=== PATIENT | female | born 1995 | race Caucasian/White ===

== ENCOUNTER 2019-02-15 19:18 | Emergency (ER) | payer OTHER ==
[~2019-02-15] VITALS: Ht 167.6 cm; Wt 55.0 kg
[2019-02-15] MEDS ORDERED: MAALOX/HYOSCYAMINE/LIDOCAINE 45 ML BTL PO ONE (20:00)
[2019-02-15] MEDS ORDERED: SODIUM CHLORIDE 0.9% 1,000ML IVBOLUS ONE (20:00)
[2019-02-15 20:09] LABS: BASOPHILS # (AUTO) 0.03 x10^3/uL (0-0.1); BASOPHILS % (AUTO) 0 % (0-1); EOSINOPHILS # (AUTO) 0.01 x10^3/uL (0-0.4); EOSINOPHILS % (AUTO) 0 % (1-7); LYMPHOCYTES % (AUTO) 35 % (22-44); MD NO; MEAN CORPUSCULAR HEMOGLOBIN 35.6 pg (27.0-34.8); MEAN CORPUSCULAR HGB CONC 34.3 g/dL (32.4-35.8); MEAN CORPUSCULAR VOLUME 103.8 fL (80-100); MEAN PLATELET VOLUME 7.8 fL (7.4-10.4); MONOCYTES # (AUTO) 0.37 x10^3/uL (0.2-0.8); MONOCYTES % (AUTO) 4 % (2-9); NEUTROPHILS # (AUTO) 5.32 x10^3/uL (1.8-6.8); NEUTROPHILS % (AUTO) 60 % (42-75); PLATELET COUNT 246 x10^3/uL (130-400); RED CELL DISTRIBUTION WIDTH 12.1 % (9.6-15.2)
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
[2019-02-15 20:19] LABS: ALANINE AMINOTRANSFERASE 23 U/L (12-78); ALBUMIN 3.9 g/dL (3.4-5.0); ANION GAP 10 mmol/L (5-15); CALCIUM 8.3 mg/dL (8.5-10.1); CHLORIDE 110 mmol/L (98-107)
[2019-02-15 20:24] LABS: ALKALINE PHOSPHATASE 62 U/L (45-117); BILIRUBIN,TOTAL 0.3 mg/dL (0.2-1.0); TOTAL PROTEIN 7.5 g/dL (6.4-8.2)
[2019-02-15] MEDS ORDERED: FAMOTIDINE 20 MG/2 ML ONE (20:24)
[2019-02-15] MEDS ORDERED: MAALOX/HYOSCYAMINE/LIDOCAINE 45 ML BTL ONE (20:24)
[2019-02-15] MEDS ORDERED: FAMOTIDINE 20 MG/2 ML IVP ONE (20:30)
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
[2019-02-15] MEDS ORDERED: LORazepam 2 MG/ML, 1ML ONE (21:22)
[2019-02-15] MEDS ORDERED: LORazepam 2 MG/ML, 1ML IVPush ONE (21:30)
--- NOTE | 2019-02-15 21:30 | NUR ---
PT C/O ANXIETY. DISCUSSED WITH HARINDER CARLOS AND PT MEDICATED ORDERED. PT TEARFULL, AO X 4. SKIN PWD. RESP EVEN AND UNLABORED. PT ON CONT BP AND O2 MONITORS. SISTER AT BEDSIDE. CALL LIGHT WITHIN REACH. WILL CONT TO MONITOR PT.
--- NOTE | 2019-02-15 22:15 | NUR ---
PT REPORTS THAT ANXIETY IS DECREASED AND SHE FEELS MORE CALM. HARINDER CARLOS AT BEDSIDE FOR RECHECK/EXPLANATION OF RESULTS. SISTER AND PT VERBALIZE UNDERSTANDING OF DC PLAN. PT ON CONT BP AND O2 MONITORS. REPORT TO RN JOSEFINA WHO ASSUMED CARE OF PT.
--- NOTE | 2019-02-15 23:01 | NUR ---
given dc instruction with work note pt understood sister at bed side for riding home vss stable pt was wheeled out for check out sister at the door
[2019-02-15 23:03] VITALS: BP 133/98
== END 2019-02-15 23:07 | disposition home or self-care (01) ==
LOC: ED 22:45
DX: F10.120 Alcohol abuse with intoxication, uncomplicated (principal); R11.10 Vomiting, unspecified
CPT/HCPCS: 36415; 80053; 80307; 84703; 85025; 96361; 96374; 96375; 99283; J2060; J3490; J7030

== ENCOUNTER 2019-11-23 23:59 | Emergency (ER) | payer OTHER ==
[~2019-11-23] VITALS: Ht 167.6 cm; Wt 55.2 kg
--- NOTE | 2019-11-24 01:05 | NUR ---
PT TO ROOM FROM LOBBY.
--- NOTE | 2019-11-24 01:12 | NUR ---
PT TO ED WITH REPORTED CP STARTING YESTERDAY AROUND 6P. PT REPORTS ACHING PAIN, DENIES SOB, NAUSEA, OR RADIATION. DENIES ANY OTHER SYMPTOMS AT THIS TIME. PT CONNECTED TO ALL MONTORING, CALL LIGHT WITHIN REACH, ALL SAFETY MEASURES IN PLACE.
--- NOTE | 2019-11-24 01:13 | NUR ---
ERMD IN ROOM TO INGRID PT.
[2019-11-24] MEDS ORDERED: MAALOX/HYOSCYAMINE/LIDOCAINE 45 ML BTL ONE (02:22)
[2019-11-24] MEDS ORDERED: MAALOX/HYOSCYAMINE/LIDOCAINE 45 ML BTL PO ONE (02:30)
[2019-11-24 02:36] VITALS: BP 110/67
== END 2019-11-24 02:39 | disposition home or self-care (01) ==
LOC: ED 11-24 02:10
DX: R07.89 Other chest pain (principal); K21.0 Gastro-esophageal reflux disease with esophagitis; I51.7 Cardiomegaly; F17.200 Nicotine dependence, unspecified, uncomplicated
CPT/HCPCS: 71046; 93005; 99283

== ENCOUNTER 2019-11-26 12:32 | Emergency (ER) | payer OTHER ==
[~2019-11-26] VITALS: Ht 167.6 cm; Wt 54.6 kg
[2019-11-26] MEDS ORDERED: KETOROLAC 30 MG/1 ML IM ONE (13:00)
[2019-11-26] MEDS ORDERED: MAALOX/HYOSCYAMINE/LIDOCAINE 45 ML BTL PO ONE (13:00)
[2019-11-26] MEDS ORDERED: FAMOTIDINE 20 MG TABLET PO ONE (13:00)
[2019-11-26] MEDS ORDERED: FAMOTIDINE 20 MG TABLET ONE (13:05)
[2019-11-26] MEDS ORDERED: KETOROLAC 30 MG/1 ML ONE (13:06)
[2019-11-26] MEDS ORDERED: MAALOX/HYOSCYAMINE/LIDOCAINE 45 ML BTL ONE (13:06)
[2019-11-26 13:14] LABS: BASOPHILS # (AUTO) 0.02 x10^3/uL (0-0.1); BASOPHILS % (AUTO) 0 % (0-1); EOSINOPHILS # (AUTO) 0.02 x10^3/uL (0-0.4); EOSINOPHILS % (AUTO) 0 % (1-7); LYMPHOCYTES # (AUTO) 1.04 x10^3/uL (1-3.4); LYMPHOCYTES % (AUTO) 19 % (22-44); MD NO; MEAN CORPUSCULAR HEMOGLOBIN 33.1 pg (27.0-34.8); MEAN CORPUSCULAR HGB CONC 34.2 g/dL (32.4-35.8); MEAN CORPUSCULAR VOLUME 96.8 fL (80-100); MEAN PLATELET VOLUME 8.1 fL (7.4-10.4); MONOCYTES # (AUTO) 0.58 x10^3/uL (0.2-0.8); MONOCYTES % (AUTO) 10 % (2-9); NEUTROPHILS # (AUTO) 3.92 x10^3/uL (1.8-6.8); NEUTROPHILS % (AUTO) 70 % (42-75); PLATELET COUNT 205 x10^3/uL (130-400); RED BLOOD COUNT 3.99 x10^6/uL (3.82-5.3); RED CELL DISTRIBUTION WIDTH 12.4 % (9.6-15.2)
[2019-11-26 13:22] LABS: ALBUMIN 3.5 g/dL (3.4-5.0); ANION GAP 7 mmol/L (5-15); CALCIUM 9.5 mg/dL (8.5-10.1); CHLORIDE 98 mmol/L (98-107); CREATININE 0.93 mg/dL (0.55-1.02)
[2019-11-26 13:25] LABS: TROPONIN I < 0.015 ng/mL (0.000-0.045)
--- NOTE | 2019-11-26 14:17 | NUR ---
recheck. nad. vss. as
[2019-11-26 14:46] VITALS: BP 115/73
== END 2019-11-26 14:49 | disposition home or self-care (01) ==
LOC: ED 14:26
DX: M94.0 Chondrocostal junction syndrome [Tietze] (principal); F17.200 Nicotine dependence, unspecified, uncomplicated; K21.9 Gastro-esophageal reflux disease without esophagitis; R07.89 Other chest pain
CPT/HCPCS: 36415; 80048; 82040; 84484; 85025; 85379; 93005; 96372; 99284; J1885

== ENCOUNTER 2019-12-17 21:19 | Emergency (ER) | payer OTHER ==
[~2019-12-17] VITALS: Ht 167.6 cm; Wt 55.1 kg
[2019-12-17] MEDS ORDERED: LIDOCAINE 1%-EPI 1:100K, 20ML SQ ONE (22:30)
--- NOTE | 2019-12-17 22:34 | NUR ---
CARE ASSUMED OF PT. PT PRESENTS WITH ABSCESS TO UPPER MIDLINE NECK. SUPPLIES FOR I&D AT BEDSIDE. AWAITING PROVIDER. PT UPDATED TO POC. CALL LIGHT IN REACH.
[2019-12-17] MEDS ORDERED: LIDOCAINE 1%-EPI 1:100K, 20ML ONE (22:39)
--- NOTE | 2019-12-17 22:55 | NUR ---
PROVIDER AT BEDSIDE FOR I&D.
[2019-12-17 23:28] VITALS: BP 124/85
[2019-12-18] MEDS ORDERED: LIDOCAINE-MPF 1%, 5ML ONE (01:01)
[2019-12-18] MEDS ORDERED: ZIPRASIDONE 20 MG INJ IM ONE (01:01)
== END 2019-12-17 23:30 | disposition home or self-care (01) ==
LOC: ED 21:30
DX: L02.811 Cutaneous abscess of head [any part, except face] (principal); M54.2 Cervicalgia; F17.200 Nicotine dependence, unspecified, uncomplicated
CPT/HCPCS: 10060; 99283

== ENCOUNTER 2020-01-26 11:34 | Observation (INO) | payer OTHER ==
[~2020-01-26] VITALS: Ht 167.6 cm; Wt 53.0 kg
--- NOTE | 2020-01-26 11:57 | NUR ---
PT AMBULATED BACK TO ROOM, MOM AT BS, NAD, RESP WNL, P/W/D, FCS NO SOB NOTED, CALL LIGHT ON LAP, LIGHTS DIMMED FOR COMFORT AND GIVEN WARM BLANKET FOR COMFORT. BS REPORT TO ELISEO ORTIZ. PT CARE TRANSFERRED AT THIS TIME.
[2020-01-26] MEDS ORDERED: L-THEANINE PO (11:58)
[2020-01-26] MEDS ORDERED: SODIUM CHLORIDE FLUSH 10ML SYR IVF ONE (12:00)
[2020-01-26] MEDS ORDERED: SODIUM CHLORIDE 0.9% 1,000ML IVBOLUS ONE (12:00)
[2020-01-26] MEDS ORDERED: METOCLOPRAMIDE 5 MG/ML, 2ML IVPush ONE (12:00)
--- NOTE | 2020-01-26 12:03 | NUR ---
LM RN: HARINDER LACY AT BEDSIDE FOR EVAL.
[2020-01-26] MEDS ORDERED: METOCLOPRAMIDE 5 MG/ML, 2ML ONE (12:12)
[2020-01-26] MEDS ORDERED: MORPHINE SULFATE 4 MG/ML, 1ML ONE ×2 (12:12→12:49)
[2020-01-26] MEDS: MORPHINE SULFATE 4 MG/ML, 1ML IVPush PRN ×2 (12:30→12:52)
--- NOTE | 2020-01-26 12:33 | NUR ---
REPORT RECEIVED FROM YISSEL ORTIZ.
[2020-01-26 12:48] LABS: HCG UR SG 1.013 (1.003-1.030)
[2020-01-26 12:49] LABS: MICROSCOPIC INDICATED
[2020-01-26 12:50] LABS: CULTURE INDICATED? YES
--- NOTE | 2020-01-26 12:52 | NUR ---
PT C/O PAIN AGAIN AND REQUESTING PAIN MED. PT MEDICATED PER EMAR FOR PAIN AT THIS TIME. PT TOLERATED WELL. PT'S AOX4. RESPS EVEN AND UNLABORED.
[2020-01-26 12:55] LABS: ALANINE AMINOTRANSFERASE 16 U/L (12-78); ALBUMIN 3.8 g/dL (3.4-5.0); CALCIUM 8.9 mg/dL (8.5-10.1); CREATININE 0.91 mg/dL (0.55-1.02)
[2020-01-26 12:57] LABS: ALKALINE PHOSPHATASE 68 U/L (45-117); BILIRUBIN,TOTAL 0.6 mg/dL (0.2-1.0); TOTAL PROTEIN 7.1 g/dL (6.4-8.2)
[2020-01-26 13:10] LABS: MD NO
[2020-01-26 13:11] LABS: BASOPHILS # (AUTO) 0.02 x10^3/uL (0-0.1); BASOPHILS % (AUTO) 0 % (0-1); EOSINOPHILS # (AUTO) 0.03 x10^3/uL (0-0.4); EOSINOPHILS % (AUTO) 1 % (1-7); LYMPHOCYTES # (AUTO) 1.75 x10^3/uL (1-3.4); LYMPHOCYTES % (AUTO) 31 % (22-44); MEAN CORPUSCULAR HEMOGLOBIN 33.7 pg (27.0-34.8); MEAN CORPUSCULAR HGB CONC 34.3 g/dL (32.4-35.8); MEAN CORPUSCULAR VOLUME 98.2 fL (80-100); MEAN PLATELET VOLUME 8.4 fL (7.4-10.4); MONOCYTES # (AUTO) 0.69 x10^3/uL (0.2-0.8); MONOCYTES % (AUTO) 12 % (2-9); NEUTROPHILS # (AUTO) 3.17 x10^3/uL (1.8-6.8); NEUTROPHILS % (AUTO) 56 % (42-75); PLATELET COUNT 235 x10^3/uL (130-400); RED BLOOD COUNT 4.77 x10^6/uL (3.82-5.3); RED CELL DISTRIBUTION WIDTH 13.2 % (9.6-15.2)
[2020-01-26 13:16] LABS: ANION GAP 12 mmol/L (5-15); CHLORIDE 72 mmol/L (98-107)
--- NOTE | 2020-01-26 13:23 | NUR ---
pt's pain level is 2/10 at this time. pt's aox4. resps even and unlabored. bp/spo2 monitors in place. call light within reach.
[2020-01-26] MEDS ORDERED: NS + 40MEQ KCL 1,000 ML IV ONE (13:26)
[2020-01-26] MEDS: SODIUM CHLORIDE 0.9% 1,000 ML IV SCH ×3 (13:32→21:44)
--- NOTE | 2020-01-26 13:35 | NUR ---
hospital monitor placed.nsr rate 60's on hospital monitor at this time. pt's aox4. resps even and unlabored. snacks provided per request.
--- NOTE | 2020-01-26 13:37 | NUR ---
med ordered from pharmacy at this time.
--- NOTE | 2020-01-26 13:37 | NUR ---
hospitalist at bedside at this time.
--- NOTE | 2020-01-26 13:46 | NUR ---
ekg done at bedside by emt at this time.
--- NOTE | 2020-01-26 13:52 | NUR ---
pt amb to br with steady gait at this time.
[2020-01-26] MEDS ORDERED: LABETALOL 5MG/ML, 20ML IVPush PRN (14:00)
[2020-01-26] MEDS ORDERED: NICOTINE 21 MG/24 HR PATCH.TD24 TD SCH (14:00)
[2020-01-26] MEDS ORDERED: POTASSIUM CHLORIDE 40 MEQ in SODIUM CHLORIDE 0.9% 500 ML IV ONE (14:00)
[2020-01-26] MEDS ORDERED: ONDANSETRON 2MG/ML, 2ML IVPush PRN (14:00)
[2020-01-26] MEDS ORDERED: ACETAMINOPHEN 325 MG TABLET PO PRN (14:00)
[2020-01-26] MEDS ORDERED: PROMETHAZINE 25 MG/ML, 1ML IM PRN (14:00)
[2020-01-26] MEDS ORDERED: HEPARIN 5,000 UNITS/ML, 1ML ONE (14:04)
[2020-01-26] MEDS ORDERED: NICOTINE 21 MG/24 HR PATCH.TD24 ONE (14:05)
[2020-01-26] MEDS: HEPARIN 5,000 UNITS/ML, 1ML SQ SCH ×2 (14:08→21:44)
--- NOTE | 2020-01-26 14:14 | NUR ---
PT MEDICATED PER EMAR. NICOTINE PATCH PLACED ON L UPPER ARM. NS INFUSING AT THIS TIME(150ML/HR). PT TOLERATED WELL.
[2020-01-26 14:22] LABS: HCT (SEDRATE) 41.5 % (34.6-47.8)
[2020-01-26 14:25] LABS: C-REACTIVE PROTEIN, QUANT < 0.02 mg/dL (0.02-0.49)
--- NOTE | 2020-01-26 14:25 | NUR ---
THIS RN CALLED PHARMACY. PHARMACY WILL SEND MED FOR THIS PT SOON.
--- NOTE | 2020-01-26 14:44 | NUR ---
REPORT GIVEN TO JERRY ORTIZ. ALL QUESTIONS ANSWERED.
--- NOTE | 2020-01-26 15:07 | NUR ---
PT AMB TO BR WITH STEADY GAIT AT THIS TIME.
--- NOTE | 2020-01-26 15:14 | NUR ---
PT BACK TO ROOM FROM WITH STEADY GAIT. PT'S AOX4. RESPS EVEN AND UNLABORED.
--- NOTE | 2020-01-26 15:24 | NUR ---
THIS RN CALLED PHARMACY AGAIN AND PHARMACY WILL SEND MED TO [facility].
[2020-01-26 15:34] VITALS: BP 107/70
[2020-01-26] MEDS ORDERED: MAGNESIUM SULFATE 3 GM in SODIUM CHLORIDE 0.9% 100 ML IV ONE (17:00)
[2020-01-26 17:28] VITALS: BP 100/86
[2020-01-26] MEDS: POTASSIUM CHLORIDE 20 MEQ TAB.ER.PRT PO SCH (17:38)
[2020-01-26] MEDS ORDERED: TRAZODONE 50MG TABLET PO PRN (18:00)
[2020-01-26 18:38] LABS: ANION GAP 7 mmol/L (5-15); CALCIUM 7.8 mg/dL (8.5-10.1); CHLORIDE 87 mmol/L (98-107); CREATININE 0.71 mg/dL (0.55-1.02)
[2020-01-26] MEDS ORDERED: OMNIPAQUE 350 MG/ML, 100ML BOTTLE ONE (18:38)
[2020-01-26 18:42] LABS: AMPHETAMINE SCREEN, URINE Negative (Negative); BARBITURATE SCREEN, URINE Negative (Negative); BENZODIAZEPINE SCREEN, URINE Negative (Negative); CANNABINOID SCREEN, URINE Negative (Negative); COCAINE SCREEN, URINE Negative (Negative); METHADONE SCREEN, URINE Negative (Negative); OPIATE SCREEN, URINE Positive (Negative)
[2020-01-26 18:58] VITALS: BP 101/64
[2020-01-27] MEDS: SODIUM CHLORIDE 0.9% 1,000 ML IV SCH ×2 (00:09→05:48)
[2020-01-27 01:05] LABS: ALBUMIN 2.7 g/dL (3.4-5.0); ANION GAP 5 mmol/L (5-15); CALCIUM 6.8 mg/dL (8.5-10.1); CHLORIDE 101 mmol/L (98-107)
[2020-01-27 01:09] LABS: ALANINE AMINOTRANSFERASE 11 U/L (12-78); ALKALINE PHOSPHATASE 45 U/L (45-117); BILIRUBIN,TOTAL 0.5 mg/dL (0.2-1.0); CREATININE 0.62 mg/dL (0.55-1.02); TOTAL PROTEIN 5.1 g/dL (6.4-8.2)
[2020-01-27 01:33] VITALS: BP 100/61
[2020-01-27] MEDS: HEPARIN 5,000 UNITS/ML, 1ML SQ SCH (05:48)
[2020-01-27 06:43] LABS: ANION GAP 9 mmol/L (5-15); CALCIUM 7.3 mg/dL (8.5-10.1); CHLORIDE 101 mmol/L (98-107)
[2020-01-27 06:44] LABS: CREATININE 0.57 mg/dL (0.55-1.02)
[2020-01-27 06:47] LABS: MEAN CORPUSCULAR HEMOGLOBIN 33.6 pg (27.0-34.8); MEAN CORPUSCULAR HGB CONC 34.1 g/dL (32.4-35.8); MEAN CORPUSCULAR VOLUME 98.7 fL (80-100); MEAN PLATELET VOLUME 8.3 fL (7.4-10.4); PLATELET COUNT 197 x10^3/uL (130-400); RED BLOOD COUNT 4.01 x10^6/uL (3.82-5.3); RED CELL DISTRIBUTION WIDTH 13.4 % (9.6-15.2)
[2020-01-27 07:08] LABS: BASOPHILS # (AUTO) 0.02 x10^3/uL (0-0.1); BASOPHILS % (AUTO) 0 % (0-1); EOSINOPHILS # (AUTO) 0.01 x10^3/uL (0-0.4); EOSINOPHILS % (AUTO) 0 % (1-7); LYMPHOCYTES % (AUTO) 42 % (22-44); MD SCAN; MONOCYTES # (AUTO) 0.39 x10^3/uL (0.2-0.8); MONOCYTES % (AUTO) 8 % (2-9); NEUTROPHILS # (AUTO) 2.35 x10^3/uL (1.8-6.8); NEUTROPHILS % (AUTO) 49 % (42-75)
[2020-01-27 07:16] VITALS: BP 103/69
[2020-01-27] MEDS ORDERED: POTASSIUM CHLORIDE 40 MEQ in SODIUM CHLORIDE 0.9% 500 ML IV ONE (08:00)
[2020-01-27] MEDS ORDERED: POTASSIUM CHLORIDE 20 MEQ TAB.ER.PRT PO ONE (08:00)
[2020-01-27] MEDS: POTASSIUM CHLORIDE 20 MEQ TAB.ER.PRT PO SCH (08:41)
== END 2020-01-27 09:12 | disposition home or self-care (01) ==
LOC: ED 12:55 → INTOOBSV 13:25 → EDIP 13:25 → 4WST 15:28
PROVIDERS: ADMIT Internal Medicine; ATTEND Internal Medicine Infectious Disease
DX: A08.4 Viral intestinal infection, unspecified (principal); R11.2 Nausea with vomiting, unspecified; E87.1 Hypo-osmolality and hyponatremia; E87.3 Alkalosis; E86.0 Dehydration; E86.1 Hypovolemia; E87.6 Hypokalemia; F17.200 Nicotine dependence, unspecified, uncomplicated; R73.9 Hyperglycemia, unspecified; Z79.899 Other long term (current) drug therapy; Z20.828 Contact with and (suspected) exposure to other viral communicable diseases
CPT/HCPCS: 36415; 74177; 80048; 80053; 80307; 81001; 81025; 82150; 83605; 83690; 83735; 83930; 83935; 84100; 84443; 85025; 85651; 86140; 87086; 93005; 96361; 96365; 96366; 96367; 96368; 96372; 96375; 99285; G0378; J1644; J2270; J2765; J3475; J3480; J7030; J7040; Q9967; 96374

== ENCOUNTER 2020-06-24 17:32 | Inpatient (IN) | payer MEDICAID, OTHER ==
[~2020-06-24] VITALS: Ht 167.6 cm; Wt 51.4 kg
[~2020-06-24 17:32] MED LIST: L-THEANINE PO
[2020-06-24] MEDS ORDERED: SODIUM CHLORIDE FLUSH 10ML SYR IVF ONE (18:30)
[2020-06-24] MEDS ORDERED: SODIUM CHLORIDE 0.9% 1,000ML IVBOLUS ONE ×2 (18:30→19:30)
[2020-06-24] MEDS ORDERED: ONDANSETRON 2MG/ML, 2ML IVPush ONE ×2 (18:30→19:30)
[2020-06-24] MEDS ORDERED: ONDANSETRON 2MG/ML, 2ML ONE ×2 (18:33→19:22)
[2020-06-24 18:50] LABS: ALANINE AMINOTRANSFERASE 20 U/L (12-78); ALBUMIN 3.2 g/dL (3.4-5.0); ANION GAP 11 mmol/L (5-15); CALCIUM 8.1 mg/dL (8.5-10.1); CHLORIDE 78 mmol/L (98-107); CREATININE 0.71 mg/dL (0.55-1.02)
[2020-06-24 18:55] LABS: ALKALINE PHOSPHATASE 63 U/L (45-117); BILIRUBIN,TOTAL 0.7 mg/dL (0.2-1.0); TOTAL PROTEIN 5.8 g/dL (6.4-8.2)
[2020-06-24 18:56] LABS: MICROSCOPIC NOT IND
[2020-06-24 19:05] LABS: BASOPHILS # (AUTO) 0.02 x10^3/uL (0-0.1); BASOPHILS % (AUTO) 0 % (0-1); EOSINOPHILS # (AUTO) 0.05 x10^3/uL (0-0.4); EOSINOPHILS % (AUTO) 1 % (1-7); LYMPHOCYTES # (AUTO) 2.54 x10^3/uL (1-3.4); LYMPHOCYTES % (AUTO) 39 % (22-44); MD NO; MEAN CORPUSCULAR HEMOGLOBIN 33.8 pg (27.0-34.8); MEAN CORPUSCULAR HGB CONC 34.9 g/dL (32.4-35.8); MONOCYTES # (AUTO) 0.52 x10^3/uL (0.2-0.8); MONOCYTES % (AUTO) 8 % (2-9); NEUTROPHILS # (AUTO) 3.41 x10^3/uL (1.8-6.8); NEUTROPHILS % (AUTO) 52 % (42-75); PLATELET COUNT 226 x10^3/uL (130-400); RED CELL DISTRIBUTION WIDTH 11.9 % (9.6-15.2)
[2020-06-24] MEDS ORDERED: POTASSIUM CHLORIDE 40 MEQ in SODIUM CHLORIDE 0.9% 500 ML IV ONE (19:30)
--- NOTE | 2020-06-24 19:33 | NUR ---
PATIENT UPDATED ON PLAN OF CARE. NO NOTED NEEDS AT THIS TIME. IV POTASSIUM STARTED, PATIENT ABLE TO TOLERATE WELL. INFORMATION GIVEN TO IMPROVE OUTCOME. PATIENT PLACED ON ADMINISTRATIVE ASSISTANT DATA ENTRY. WILL CONTINUE TO MONITOR.
--- NOTE | 2020-06-24 19:43 | NUR ---
PATIENT UP TO RESTOOM WITHOUT COMPLICATIONS. UPDATED ON PLAN OF CARE.
[2020-06-24] MEDS ORDERED: NS + 20MEQ KCL 1,000 ML IV SCH (20:14)
[2020-06-24] MEDS ORDERED: ACETAMINOPHEN 325 MG TABLET PO PRN (20:30)
[2020-06-24] MEDS ORDERED: DOCUSATE 100 MG CAPSULE PO PRN (20:30)
[2020-06-24 21:34] VITALS: BP 99/59
[2020-06-24] MEDS: HEPARIN 5,000 UNITS/ML, 1ML SQ SCH (22:09)
[2020-06-24 23:45] LABS: OSMOLALITY,URINE 131 mOsm/kg (500-850)
[2020-06-25 02:00] VITALS: BP 105/64
[2020-06-25] MEDS ORDERED: MAGNESIUM SULFATE/D5W 100 ML IVPB ONE (05:00)
[2020-06-25 05:50] LABS: BASOPHILS % (AUTO) 0 % (0-1); EOSINOPHILS % (AUTO) 1 % (1-7); LYMPHOCYTES % (AUTO) 57 % (22-44); MEAN CORPUSCULAR HGB CONC 35.9 g/dL (32.4-35.8); MEAN PLATELET VOLUME 8.1 fL (7.4-10.4); MONOCYTES % (AUTO) 7 % (2-9); NEUTROPHILS % (AUTO) 35 % (42-75); PLATELET COUNT 241 x10^3/uL (130-400); RED BLOOD COUNT 3.95 x10^6/uL (3.82-5.3); RED CELL DISTRIBUTION WIDTH 12.3 % (9.6-15.2)
[2020-06-25 05:58] LABS: CHLORIDE 99 mmol/L (98-107)
[2020-06-25 06:07] LABS: ANION GAP 3 mmol/L (5-15); CALCIUM 7.9 mg/dL (8.5-10.1); CREATININE 0.83 mg/dL (0.55-1.02)
[2020-06-25] MEDS: HEPARIN 5,000 UNITS/ML, 1ML SQ SCH (06:29)
[2020-06-25 06:47] VITALS: BP 89/58
[2020-06-25 06:48] LABS: MD NO
[2020-06-25] MEDS ORDERED: POTASSIUM CHLORIDE 20 MEQ TAB.ER.PRT PO ONE ×2 (08:00→11:00)
[2020-06-25] MEDS ORDERED: POTASSIUM CHLORIDE 40 MEQ in SODIUM CHLORIDE 0.9% 500 ML IV ONE (08:00)
[2020-06-25] MEDS ORDERED: NICOTINE 14MG/24 HR PATCH.TD24 TD SCH (09:00)
[2020-06-25 10:27] LABS: ANION GAP 3 mmol/L (5-15); CALCIUM 7.9 mg/dL (8.5-10.1); CHLORIDE 106 mmol/L (98-107); CREATININE 0.72 mg/dL (0.55-1.02)
[2020-06-25 12:12] VITALS: BP 97/62
== END 2020-06-25 12:15 | disposition home or self-care (01) | DRG 641 ==
LOC: ED 19:33 → EDIP 20:53 → 4WST 21:14 → DCLOUNGE 06-25 12:12
PROVIDERS: ADMIT Family Medicine; ATTEND Family Medicine
DX: E87.6 Hypokalemia (principal); E87.1 Hypo-osmolality and hyponatremia; F17.200 Nicotine dependence, unspecified, uncomplicated
CPT/HCPCS: 36415; 80048; 80053; 81003; 83690; 83735; 83930; 83935; 84295; 84703; 85025; 93005; G0378; J1644; J2405; J3480; J7030; J7040

== ENCOUNTER 2020-08-19 16:50 | Emergency (ER) | payer MEDICAID ==
[~2020-08-19] VITALS: Ht 167.6 cm; Wt 54.8 kg
[2020-08-19] MEDS ORDERED: ONDANSETRON 2MG/ML, 2ML IVPush ONE (17:30)
[2020-08-19] MEDS ORDERED: SODIUM CHLORIDE 0.9% 1,000ML IVBOLUS ONE (17:30)
[2020-08-19] MEDS ORDERED: SODIUM CHLORIDE FLUSH 10ML SYR IVF ONE (17:30)
[2020-08-19 17:54] LABS: BASOPHILS % (AUTO) 0 % (0-1); EOSINOPHILS % (AUTO) 0 % (1-7); LYMPHOCYTES % (AUTO) 44 % (22-44); MEAN CORPUSCULAR HEMOGLOBIN 34.3 pg (27.0-34.8); MEAN CORPUSCULAR HGB CONC 34.2 g/dL (32.4-35.8); MEAN PLATELET VOLUME 7.9 fL (7.4-10.4); MONOCYTES % (AUTO) 5 % (2-9); NEUTROPHILS % (AUTO) 50 % (42-75); PLATELET COUNT 412 x10^3/uL (130-400); RED BLOOD COUNT 4.45 x10^6/uL (3.82-5.3); RED CELL DISTRIBUTION WIDTH 13.4 % (9.6-15.2)
[2020-08-19] MEDS ORDERED: ONDANSETRON 2MG/ML, 2ML ONE (18:02)
[2020-08-19 18:05] LABS: MD NO
[2020-08-19 18:06] LABS: ANION GAP 7 mmol/L (5-15); CALCIUM 9.6 mg/dL (8.5-10.1); CHLORIDE 106 mmol/L (98-107); CREATININE 1.09 mg/dL (0.55-1.02)
[2020-08-19 18:55] VITALS: BP 100/72
--- NOTE | 2020-08-19 18:55 | NUR ---
PT FEELING BETTER AFTER MEDS AND IVF. PT READY FOR DISCHARGE, AWAITING PAPERWORK.
--- NOTE | 2020-08-19 19:40 | NUR ---
PT NOT IN ROOM FOR DISCHARGE PAPERS.
== END 2020-08-19 19:40 | disposition home or self-care (01) ==
LOC: ED 18:45
DX: R11.2 Nausea with vomiting, unspecified (principal); R19.7 Diarrhea, unspecified; Z20.828 Contact with and (suspected) exposure to other viral communicable diseases; R05 Cough; R06.02 Shortness of breath; R10.9 Unspecified abdominal pain; R00.0 Tachycardia, unspecified; F17.200 Nicotine dependence, unspecified, uncomplicated; K21.9 Gastro-esophageal reflux disease without esophagitis
CPT/HCPCS: 71045; 80048; 84703; 85025; 87635; 93005; 96361; 96374; 99285; J2405; J7030